=== PATIENT | female | born 1990 | race Caucasian/White ===

== ENCOUNTER 2017-12-26 23:43 | Emergency (ER) | payer MEDICAID ==
[~2017-12-26] VITALS: Ht 165.1 cm; Wt 74.2 kg
[~2017-12-26 23:43] MED LIST: ESOM20CA PO; NITR100C56 PO; [UNRECOGNIZED DRUG - REMARK]
[2017-12-27] MEDS ORDERED: SERT25TA3 PO (00:06)
[2017-12-27 01:02] LABS: CLUE CELLS PRESENT (NONE SEEN); WET PREP WBCS MANY (FEW)
[2017-12-27 01:13] LABS: HCG UR SG 1.023 (1.003-1.030); MICROSCOPIC AUTO
[2017-12-27 01:20] LABS: CULTURE INDICATED? YES
[2017-12-27 01:45] LABS: BASOPHILS # (AUTO) 0.02 x10^3/uL (0-0.1); BASOPHILS % (AUTO) 0 % (0-1); EOSINOPHILS # (AUTO) 0.34 x10^3/uL (0-0.4); EOSINOPHILS % (AUTO) 5 % (1-7); LYMPHOCYTES % (AUTO) 41 % (22-44); MD NO; MEAN CORPUSCULAR HGB CONC 33.3 g/dL (32.4-35.8); MEAN CORPUSCULAR VOLUME 90.1 fL (80-100); MEAN PLATELET VOLUME 8.1 fL (7.4-10.4); MONOCYTES # (AUTO) 0.51 x10^3/uL (0.2-0.8); MONOCYTES % (AUTO) 7 % (2-9); NEUTROPHILS # (AUTO) 3.55 x10^3/uL (1.8-6.8); NEUTROPHILS % (AUTO) 47 % (42-75); PLATELET COUNT 250 x10^3/uL (130-400); RED BLOOD COUNT 4.47 x10^6/uL (3.82-5.3)
[2017-12-27 01:54] LABS: ALBUMIN 3.7 g/dL (3.4-5.0); ANION GAP 6 mmol/L (5-15); CALCIUM 8.4 mg/dL (8.5-10.1); CHLORIDE 108 mmol/L (98-107); CREATININE 0.83 mg/dL (0.55-1.02)
[2017-12-27] MEDS ORDERED: CEFTRIAXONE 250 MG ONE (02:10)
[2017-12-27] MEDS ORDERED: LIDOCAINE-MPF 1%, 2ML ONE (02:10)
[2017-12-27] MEDS ORDERED: AZITHROMYCIN 500 MG TABLET ONE (02:10)
[2017-12-27] MEDS ORDERED: AZITHROMYCIN 500 MG TABLET PO ONE (02:30)
[2017-12-27] MEDS ORDERED: CEFTRIAXONE 250 MG IM ONE (02:30)
[2017-12-27 02:40] VITALS: BP 138/84
== END 2017-12-27 02:43 | disposition home or self-care (01) ==
LOC: ED 12-27 02:37
DX: R10.2 Pelvic and perineal pain (principal); R31.9 Hematuria, unspecified; N76.0 Acute vaginitis; J45.909 Unspecified asthma, uncomplicated; K21.9 Gastro-esophageal reflux disease without esophagitis
CPT/HCPCS: 36415; 76830; 80048; 81001; 81025; 82040; 85025; 87086; 87210; 87491; 87591; 87808; 96372; 99285; J0696

== ENCOUNTER 2019-12-21 15:07 | Emergency (ER) | payer MEDICAID ==
[~2019-12-21] VITALS: Ht 165.1 cm; Wt 89.0 kg
[~2019-12-21 15:07] MED LIST changes: +SERT25TA3 PO
[2019-12-21 15:17] VITALS: BP 134/95
--- NOTE | 2019-12-21 15:45 | NUR ---
PT STATES SHE IS CURRENTLY ON DOXYCYCLINE FOR "BACTERIA UNDER THE GUMS".
[2019-12-21 15:52] LABS: MICROSCOPIC NOT IND
[2019-12-21] MEDS ORDERED: KETOROLAC 30 MG/1 ML IM ONE (16:00)
[2019-12-21] MEDS ORDERED: KETOROLAC 30 MG/1 ML ONE (16:02)
[2019-12-21 16:09] LABS: BASOPHILS # (AUTO) 0.02 x10^3/uL (0-0.1); BASOPHILS % (AUTO) 0 % (0-1); EOSINOPHILS # (AUTO) 0.14 x10^3/uL (0-0.4); EOSINOPHILS % (AUTO) 2 % (1-7); LYMPHOCYTES # (AUTO) 2.28 x10^3/uL (1-3.4); LYMPHOCYTES % (AUTO) 34 % (22-44); MD NO; MEAN CORPUSCULAR HEMOGLOBIN 29.7 pg (27.0-34.8); MEAN CORPUSCULAR HGB CONC 33.4 g/dL (32.4-35.8); MEAN CORPUSCULAR VOLUME 88.9 fL (80-100); MEAN PLATELET VOLUME 7.9 fL (7.4-10.4); MONOCYTES % (AUTO) 7 % (2-9); NEUTROPHILS # (AUTO) 3.84 x10^3/uL (1.8-6.8); NEUTROPHILS % (AUTO) 57 % (42-75); PLATELET COUNT 230 x10^3/uL (130-400); RED BLOOD COUNT 4.53 x10^6/uL (3.82-5.3); RED CELL DISTRIBUTION WIDTH 13.6 % (9.6-15.2)
--- NOTE | 2019-12-21 16:14 | NUR ---
PT MEDICATED FOR FLANK PAIN PER ORDERS. UNDERSTANDS POC.
[2019-12-21 16:20] LABS: ALANINE AMINOTRANSFERASE 20 U/L (12-78); ALBUMIN 3.7 g/dL (3.4-5.0); ANION GAP 7 mmol/L (5-15); CALCIUM 8.4 mg/dL (8.5-10.1); CHLORIDE 107 mmol/L (98-107); CREATININE 1.05 mg/dL (0.55-1.02)
[2019-12-21 16:25] LABS: ALKALINE PHOSPHATASE 68 U/L (45-117); BILIRUBIN,TOTAL 0.5 mg/dL (0.2-1.0); TOTAL PROTEIN 6.9 g/dL (6.4-8.2)
--- NOTE | 2019-12-21 18:16 | NUR ---
BREAK RN: Patient/Caregiver given discharge instructions and they have confirmed that they understand the instructions. Patient ambulatory with steady gait.
== END 2019-12-21 18:16 | disposition home or self-care (01) ==
LOC: ED 16:47
DX: R10.9 Unspecified abdominal pain (principal); N83.291 Other ovarian cyst, right side; R11.0 Nausea; K21.9 Gastro-esophageal reflux disease without esophagitis; J45.909 Unspecified asthma, uncomplicated
CPT/HCPCS: 36415; 74176; 80053; 81003; 84703; 85025; 96372; 99284; J1885

== ENCOUNTER 2020-05-28 13:45 | Emergency (ER) | payer BC, MEDICAID ==
[~2020-05-28] VITALS: Ht 165.1 cm; Wt 90.5 kg
[2020-05-28] MEDS ORDERED: PANT40TA6 PO (14:36)
[2020-05-28] MEDS ORDERED: AMLO-211 PO (14:36)
--- NOTE | 2020-05-28 14:40 | NUR ---
REPORTED TO LULU CARROLL.
--- NOTE | 2020-05-28 17:06 | NUR ---
PT TO IR
--- NOTE | 2020-05-28 17:41 | NUR ---
pt remains at ir at this time
[2020-05-28 18:34] VITALS: BP 128/92
[2020-05-28 18:35] LABS: GLUCOSE, CSF 60 mg/dL (40-80); TOTAL PROTEIN,CSF 32 mg/dL (15-45)
--- NOTE | 2020-05-28 19:01 | NUR ---
PT AMBULATED TO RESTROOM WITH A STEADY GAIT. PT IN ROOM AND REMAINS FLAT AT THIS TIME. PER PT NO CHANGE IN HEADACHE INTENSITY.
== END 2020-05-28 19:26 | disposition home or self-care (01) ==
LOC: ED 14:22
DX: G89.29 Other chronic pain (principal); R51.9 Headache, unspecified; J45.909 Unspecified asthma, uncomplicated; I10 Essential (primary) hypertension; Z90.89 Acquired absence of other organs
CPT/HCPCS: 62270; 62328; 77002; 82945; 84157; 87070; 87205; 87252; 89051; 99285

== ENCOUNTER 2020-05-30 17:00 | Emergency (ER) | payer BC, MEDICAID ==
[~2020-05-30] VITALS: Ht 165.1 cm; Wt 90.0 kg
[~2020-05-30 17:00] MED LIST changes: +AMLO-211 PO; +PANT40TA6 PO
[2020-05-30 17:31] LABS: BASOPHILS % (AUTO) 0 % (0-1); EOSINOPHILS % (AUTO) 2 % (1-7); LYMPHOCYTES % (AUTO) 43 % (22-44); MEAN CORPUSCULAR HEMOGLOBIN 28.1 pg (27.0-34.8); MEAN CORPUSCULAR HGB CONC 32.5 g/dL (32.4-35.8); MEAN PLATELET VOLUME 7.3 fL (7.4-10.4); MONOCYTES % (AUTO) 7 % (2-9); NEUTROPHILS % (AUTO) 47 % (42-75); PLATELET COUNT 266 x10^3/uL (130-400); RED BLOOD COUNT 4.92 x10^6/uL (3.82-5.3)
[2020-05-30 17:35] LABS: MD NO
[2020-05-30 17:37] LABS: CALCIUM 8.6 mg/dL (8.5-10.1); CHLORIDE 112 mmol/L (98-107)
[2020-05-30 17:43] LABS: ALANINE AMINOTRANSFERASE 18 U/L (12-78); ALKALINE PHOSPHATASE 81 U/L (45-117); BILIRUBIN,TOTAL 0.5 mg/dL (0.2-1.0); CREATININE 0.84 mg/dL (0.55-1.02); TOTAL PROTEIN 7.7 g/dL (6.4-8.2)
[2020-05-30 17:46] LABS: ANION GAP 6 mmol/L (5-15)
--- NOTE | 2020-05-30 20:42 | NUR ---
pt not in lobby
--- NOTE | 2020-05-30 20:54 | NUR ---
not in lobby
--- NOTE | 2020-05-30 21:00 | NUR ---
pt found in lobby
--- NOTE | 2020-05-30 21:16 | NUR ---
First contact with patient: patient presents to ER c/o TORRES with blurry vision and pain down spine. Patient has had HAs x2 months and had a spinal tap 1.5 days ago. They advised her to come back if symptoms worsen. Patient is in NAD. Respirations even and unlabored.
--- NOTE | 2020-05-30 21:18 | NUR ---
Also c/o nausea and dizziness when standing. Took 600 mg ibuprofen with no relief.
[2020-05-30] MEDS ORDERED: PROCHLORPERAZINE 5 MG/ML, 2ML ONE (21:41)
[2020-05-30] MEDS ORDERED: DIPHENHYDRAMINE 50 MG/ML, 1ML ONE (21:41)
[2020-05-30] MEDS ORDERED: KETOROLAC 30 MG/1 ML ONE (21:41)
[2020-05-30] MEDS ORDERED: SODIUM CHLORIDE FLUSH 10ML SYR IVF ONE (22:00)
[2020-05-30] MEDS ORDERED: KETOROLAC 30 MG/1 ML IVPush ONE (22:00)
[2020-05-30] MEDS ORDERED: SODIUM CHLORIDE 0.9% 1,000ML IVBOLUS ONE (22:00)
[2020-05-30] MEDS ORDERED: DIPHENHYDRAMINE 50 MG/ML, 1ML IVPush ONE (22:00)
[2020-05-30] MEDS ORDERED: PROCHLORPERAZINE 5 MG/ML, 2ML IVPush ONE (22:00)
--- NOTE | 2020-05-30 22:00 | NUR ---
Admin meds and fluids per mar.
--- NOTE | 2020-05-30 22:23 | NUR ---
Patient ambulated to BR.
--- NOTE | 2020-05-30 23:59 | NUR ---
Patient to MRI.
[2020-05-31] MEDS ORDERED: MORPHINE SULFATE 4 MG/ML, 1ML IVPush PRN
[2020-05-31] MEDS ORDERED: ONDANSETRON 2MG/ML, 2ML IVPush ONE
[2020-05-31] MEDS ORDERED: GADOTERATE 10 MMOL/20 ML VIAL ONE (00:12)
--- NOTE | 2020-05-31 01:05 | NUR ---
Patient returned from MRI. Still in pain. Will admin meds per sep.
--- NOTE | 2020-05-31 01:05 | NUR ---
Patient still c/o pain. Medicated patient per sep.
[2020-05-31] MEDS ORDERED: ONDANSETRON 2MG/ML, 2ML ONE (01:06)
[2020-05-31] MEDS ORDERED: MORPHINE SULFATE 4 MG/ML, 1ML ONE (01:06)
[2020-05-31 03:12] VITALS: BP 155/77
--- NOTE | 2020-05-31 03:13 | NUR ---
D/c instructions given. All questions and concerns addressed. Patient ambulatory with a steady gait. Belongings with patient.
== END 2020-05-31 03:15 | disposition home or self-care (01) ==
LOC: ED 22:23
DX: R51.9 Headache, unspecified (principal); R11.0 Nausea
CPT/HCPCS: 36415; 70546; 80053; 84703; 85025; 96374; 96375; 99285; A9575; J0780; J1200; J1885; J2270; J2405; J7030

== ENCOUNTER 2020-06-02 12:30 | Emergency (ER) | payer BC, MEDICAID ==
[~2020-06-02] VITALS: Ht 165.1 cm; Wt 89.0 kg
[2020-06-02 13:13] LABS: BASOPHILS % (AUTO) 0 % (0-1); EOSINOPHILS % (AUTO) 1 % (1-7); LYMPHOCYTES % (AUTO) 23 % (22-44); MEAN CORPUSCULAR HEMOGLOBIN 28.5 pg (27.0-34.8); MEAN CORPUSCULAR HGB CONC 33.2 g/dL (32.4-35.8); MEAN PLATELET VOLUME 7.5 fL (7.4-10.4); MONOCYTES % (AUTO) 5 % (2-9); NEUTROPHILS % (AUTO) 72 % (42-75); PLATELET COUNT 276 x10^3/uL (130-400); RED BLOOD COUNT 4.98 x10^6/uL (3.82-5.3)
[2020-06-02 13:16] LABS: MD NO
[2020-06-02 13:32] LABS: ALANINE AMINOTRANSFERASE 23 U/L (12-78); ALBUMIN 4.1 g/dL (3.4-5.0); ALKALINE PHOSPHATASE 86 U/L (45-117); ANION GAP 5 mmol/L (5-15); BILIRUBIN,TOTAL 0.6 mg/dL (0.2-1.0); CALCIUM 9.1 mg/dL (8.5-10.1); CHLORIDE 105 mmol/L (98-107); CREATININE 0.96 mg/dL (0.55-1.02)
--- NOTE | 2020-06-02 16:33 | NUR ---
DIRECTOR RELIGIOUS EDUCATION: PT TO ROOM FROM LOBBY
--- NOTE | 2020-06-02 18:00 | NUR ---
pt in room vss, room air, no distress,
--- NOTE | 2020-06-02 19:05 | NUR ---
report of pt from luciano appiah and assuming care of pt at this time.
--- NOTE | 2020-06-02 19:41 | NUR ---
pt resting in [facility] at this time with call light within reach. pt vss and updated in emr. pt denies any needs at this time.
[2020-06-02] MEDS ORDERED: LIDOCAINE 1%, 10ML ONE (20:01)
--- NOTE | 2020-06-02 20:22 | NUR ---
PT TO RADIOLOGY FOR BLOOD PATCH AT THIS TIME.
[2020-06-02] MEDS ORDERED: KETOROLAC 30 MG/1 ML ONE (21:13)
--- NOTE | 2020-06-02 21:23 | NUR ---
PT MEDICATED PER MAR.
[2020-06-02] MEDS ORDERED: KETOROLAC 30 MG/1 ML IVPush ONE (21:30)
--- NOTE | 2020-06-02 22:37 | NUR ---
PT AMBULATES TO RESTROOM WITH STEADY GAIT AT THIS TIME.
--- NOTE | 2020-06-02 23:12 | NUR ---
PT D/C WITH D/C SUMMARY. PT VSS PRIOR TO PT D/C. PT AMBULATES TO REGISTRATION DESK WITH STEADY GAIT AND DENIES ANY OTHER NEEDS PERTAINING TO THIS VISIT. PT QUESTIONS ANSWERED. PT PROVIDED WORK NOTE PER PT REQUEST.
[2020-06-02 23:13] VITALS: BP 134/77
== END 2020-06-02 23:15 | disposition home or self-care (01) ==
LOC: ED 20:02
DX: G44.52 New daily persistent headache (NDPH) (principal); H53.8 Other visual disturbances; R42 Dizziness and giddiness; I10 Essential (primary) hypertension; K21.9 Gastro-esophageal reflux disease without esophagitis; J45.909 Unspecified asthma, uncomplicated; Z90.89 Acquired absence of other organs
CPT/HCPCS: 36415; 62273; 62328; 80053; 85025; 99285; J3490